=== PATIENT | male | born 1950 | race Two or more races ===

== ENCOUNTER 2019-11-14 11:55 | Emergency (ER) | payer OTHER ==
[~2019-11-14] VITALS: Ht 172.7 cm; Wt 90.7 kg
[2019-11-14] MEDS ORDERED: JANUMET XR 50-1 EAC1 (13:42)
[2019-11-14] MEDS ORDERED: CYMBALTA60 MG (13:43)
[2019-11-14] MEDS ORDERED: ZETIA10 MG (13:44)
[2019-11-14] MEDS ORDERED: DITROPAN XL5 MG (13:44)
[2019-11-14] MEDS ORDERED: PLAVIX75 MG (13:45)
[2019-11-14] MEDS ORDERED: ATORVASTATIN CA20 MG (13:45)
[2019-11-14] MEDS ORDERED: SYNTHROID50 MCG (13:45)
[2019-11-14] MEDS ORDERED: ZANTAC150 MG (13:46)
[2019-11-14] MEDS ORDERED: TAMS0.4C (13:46)
[2019-11-14] MEDS ORDERED: PROSCAR5 MG (13:46)
[2019-11-14] MEDS ORDERED: LYRICA200 MG (13:47)
[2019-11-14] MEDS ORDERED: ASPIR 8181 MG (13:47)
== END 2019-11-14 21:41 | disposition home or self-care (01) ==
LOC: ER 11:55
DX: L03.116 Cellulitis of left lower limb (principal)